=== PATIENT | female | born 1970 ===

== ENCOUNTER 2022-03-31 05:42 | Day surgery (SDC) | payer OTHER ==
[~2022-03-31 05:42] MED LIST: Sodium Chloride 0.9% 10 ML Syringe FLUSH SCH
[2022-03-31] MEDS ORDERED: Midazolam 1 MG/ML 2 ML SDV IV ONE ×7 (05:43→07:12)
[2022-03-31] MEDS ORDERED: fentaNYL 100 MCG/2 ML SDV IV ONE ×6 (05:43→07:19)
[2022-03-31] MEDS ORDERED: Dextrose 5%-0.45% NaCl 1,000 ML IV SCH (06:00)
[2022-03-31] MEDS ORDERED: Sodium Chloride 0.9% 10 ML Syringe FLUSH PRN (06:00)
[2022-03-31] MEDS ORDERED: Midazolam 1 MG/ML 2 ML SDV ONE (06:12)
[2022-03-31] MEDS ORDERED: fentaNYL 100 MCG/2 ML SDV ONE (06:12)
== END 2022-03-31 09:00 | disposition home or self-care (01) ==
LOC: DL.ENDO 05:42
PROVIDERS: ATTEND Internal Medicine Gastroenterology
DX: Z12.11 Encounter for screening for malignant neoplasm of colon (principal); E66.09 Other obesity due to excess calories; I10 Essential (primary) hypertension; F41.1 Generalized anxiety disorder; E78.5 Hyperlipidemia, unspecified; E87.6 Hypokalemia; Z90.49 Acquired absence of other specified parts of digestive tract; Z98.890 Other specified postprocedural states; Z68.37 Body mass index [BMI] 37.0-37.9, adult; Z88.8 Allergy status to other drugs, medicaments and biological substances
CPT/HCPCS: 45378; J2250; J3010; J7042